=== PATIENT | female | born 1980 | race African-American/Black ===

== ENCOUNTER → 2020-03-23 | Outpatient (CLI) | payer BC, OTHER ==
[~2020-03-23] MED LIST: ADIPEX-P37.5 MG PO; MEDROLDOSEPACK PO; PERCOCET 5-3251 EACH PO
== END ==
LOC: BC 09:22
PROVIDERS: ATTEND Neuromusculoskeletal Medicine & OMM
DX: Z12.31 Encounter for screening mammogram for malignant neoplasm of breast (principal)